=== PATIENT | male | born 1935 | race Caucasian/White ===

== ENCOUNTER 2016-05-04 12:25 | Observation (INO) | payer MEDICARE, OTHER ==
[2016-05-04] MEDS ORDERED: ASPIRIN 81 MG TAB.CHEW PO ONE (13:18)
[2016-05-04] MEDS ORDERED: NITROGLYCERIN 0.4 MG/TAB BTL SL PRN (13:18)
--- NOTE | 2016-05-04 13:20 | ERNOTE ---
Syncope ER HPI Date of Service: 05/04/16 Stated Complaint: SYNCOPE Time Seen by Provider: 05/04/16 13:10 Source: patient, family Exam Limitations: no limitations Immunizations: IMMUNIZATION HX Immunizations Up to Date Yes History of Influenza Vaccine Yes Hx Pneumococcal Vaccination Yes Allergies/Adverse Reactions: Allergies No Known Allergies Allergy (Verified 05/04/16 12:34) Home Medications: HOME MEDICATIONS Aspirin [Aspirin Chewable] 81 mg PO DAILY 01/27/14 [Last Taken 05/04/16] Benazepril HCl [Lotensin] 10 mg PO DAILY 01/27/14 [Last Taken 05/04/16] Clopidogrel Bisulfate [Plavix] 75 mg PO DAILY 01/27/14 [Last Taken 05/04/16] Gabapentin [Neurontin] 300 mg PO BID 01/27/14 [Last Taken 05/04/16] Multivitamin [Multi Vitamin Daily] 1 each PO DAILY 01/27/14 [Last Taken 05/04/16 ] Nitroglycerin 0.4 mg SL Q5M PRN 01/27/14 [Last Taken Unknown] Pantoprazole Sodium [Protonix] 40 mg PO DAILY 01/27/14 [Last Taken 05/04/16] Simvastatin [Zocor] 40 mg PO HS 01/27/14 [Last Taken 05/03/16] Baclofen 10 mg PO BID 11/07/14 [Last Taken 05/04/16] Finasteride [Proscar] 5 mg PO DAILY 05/04/16 [Last Taken 05/03/16] Tamsulosin HCl [Flomax] 0.4 mg PO HS 05/04/16 [Last Taken 05/03/16] - History of Present Illness Narrative: 80 y/o male brought to the ED from home by EMS for a near syncopal episode. He was outside raking leaves when he began to feel weak and lightheaded. He went inside and sat down. He then began feeling worse and reports being clammy and almost passing out. He denies any chest pain at that time, but reports midsternal chest pain when I walked in the room to see him. He denies any prior syncopal episodes or chest pain. He had 3 stents placed in 2008(?) at [facility] and has been without any cardiac symptoms since. Prior Episodes: Present: no prior history, single episode today Symptoms prior to episode: Present: none Activity at time of episode: Present: other - exertion Character of event: Present: no loss of consciousness, almost passed out Location of Injury: Present: none Current Symptoms: Present: chest pain Prior Treament: Denies: recently seen, similar symptoms before Review of Systems - Review of Systems Constitutional: Absent: recent illness, fever, chills, fatigue, malaise EYE: Present: no symptoms reported ENT: Absent: ear pain, nose congestion, sore throat Respiratory: Absent: shortness of breath, cough Cardiology: Absent: palpitations, edema Gastrointestinal/Abdominal: Absent: nausea, vomiting, diarrhea, abdominal pain, eating less, drinking less Genitourinary: Absent: dysuria, hematuria Musculoskeletal: Absent: muscle pain, joint pain Skin: Absent: rash, lesions Neurological: Absent: headache, numbness, tingling Endocrine: Present: no symptoms reported Hematologic/Lymphatic: Present: no symptoms reported Psych: Present: no symptoms reported - Patient's Past Medical History Patient History - Medical: Arthritis, GERD, Other - Back pain - scoliosis Patient History - Cardiac/Respiratory: Coronary Heart Disease, Hyperlipidemia Patient History - Cancer: No Hx of Cancer Patient History - Surgical Procedures: Cardiac stent, Hernia Repair, Orthopedic - Shoulder - Family History Brother Family History - Medical: Family History - Cardiac/Respiratory: Cardiac Arrest Father Family History - Medical: Family History - Cardiac/Respiratory: Cardiac Arrest Sister Family History - Medical: , Diabetes Type 2 Grandfather Family History - Medical: Family History - Cardiac/Respiratory: Cardiac Arrest - Social History Living Situations: spouse Abuse History: No History of abuse Psych History: No pertinent hx Smoking Status: Former smoker Have you smoked in the past 12 months: No Do you dip or chew tobacco: No Patient requests Smoking Cessation Consult: No Initiate information on Smoking Cessation: No Alcohol Use: none Drug Use: none - Immunizations Immunizations Up to Date: Yes Hx Pneumococcal Vaccination: Yes History of Influenza Vaccine: Yes Physical Exam - Physical Exam General Appearance: Present: wd/wn, alert, no apparent distress Eye Exam: Normal inspection: bilateral Ears, Nose, Throat: Present: normal ENT inspection Neck: Present: normal inspection, nontender, supple, full range of motion Respiratory: Present: no respiratory distress, normal breath sounds, no accessory muscle use, chest nontender, lungs clear Cardiovascular/Chest: Present: regular rate, rhythm, no murmur, normal peripheral pulses Gastrointestinal/Abdominal: Present: normal bowel sounds, nontender, distended Extremity Exam: Present: normal inspection, normal range of motion, no edema Neurological Exam: Present: alert, oriented, normal mood/affect, no motor/ sensory deficits Skin Exam: Present: normal color, warm/dry ED Progress - Results and Orders Patient's Lab Results:: I have reviewed the patient's lab results. - Vital Signs Patient's Vital Signs:: I have reviewed the patient's vital signs. Vital Signs: Vital Signs 05/04/16 12:37 Temperature 35.7 C L Pulse Rate 70 Respiratory 14 Rate Blood Pressure 107/57 O2 Sat by Pulse 97 Oximetry - X-Ray X-Ray #1 X-Ray: chest Interpretation: Reviewed by me X-ray Comments: Technique: Frontal and lateral views of the chest are evaluated. (2) views. Comparison: January 27, 2014. Findings: The patient is rotated. The lungs are symmetrically inflated. Eventration of the diaphragm noted. No focal consolidation. No pneumothorax or pleural effusion. The cardiac silhouette and mediastinal contours are unchanged. Atherosclerotic changes are present at the aortic arch. The pulmonary vascular markings are normal. The osseous structures are remarkable for degenerative changes. No acute osseous findings. IMPRESSION: No acute pulmonary findings. Electronically signed by Angelo Mitchell D.O.. - Progress/Reassessment Chief Complaint: Syncopal Episode Progress:: Unchanged Plan - Plan Plan: Chest pain relieved with one nitro. No further episodes of weakness or near syncope. Negative troponin and EKG's were unremarkable. Dr. Thompson contacted regarding patient. Given his prior cardiac history, will admit to observation for chest pain, R/O MS. Departure Clinical Impression: Near syncope Chest pain Qualifiers: Chest pain type: unspecified Qualified Code(s): R07.9 - Chest pain, unspecified - Departure Disposition: [facility] Condition: Stable Referrals: Kevin Vasquez MD [Primary Care Provider] -
[2016-05-04 13:34] LABS: Hematocrit 39.8 % (42.0-52.0); Mean Cell Volume 89.8 fl (78-100); Mean Corpuscular Hemoglobin 29.3 pg (27-31); Mean Corpuscular Hgb Conc 32.7 g/dl (32-36); Mean Platelet Volume 10.5 fl (6.0-9.5); Neutrophil # 9.9 K/mm3 (1.3-6.0); Neutrophil % 85.3 % (42-75.0); Platelet Count 236 K/mm3 (150-450); Red Blood Count 4.43 M/mm3 (4.7-6.0); Red Cell Distribution Width 14.5 % (11.5-14.0); White Blood Count 11.6 K/mm3 (4.0-10.5)
[2016-05-04 13:43] LABS: Prothrombin Time (Patient) 10.9 Seconds (9.4-11.4)
[2016-05-04 13:45] LABS: INR 1.05 INR (0.90-1.10); Partial Thrombolplastin Time 22.1 Seconds (24-32)
[2016-05-04 13:52] LABS: ALT 27 U/L (19-67); AST 22 U/L (0-48); Albumin * 3.5 gm/dl (3.4-5.0); Alkaline Phosphatase * 50 U/L (50-170); Anion Gap 12.9 mmol/L (6.8-13.8); BUN/Creatinine Ratio 18.7 (9.0-21.6); Bilirubin, Total 0.6 mg/dL (0.0-1.1); Blood Urea Nitrogen 23 mg/dL (6-23); Calcium * 8.9 mg/dL (7.9-10.9); Carbon Dioxide 27.5 mmol/L (24-32.6); Chloride 104 mmol/L (97-106); Glucose * 139 mg/dL (70-110); Potassium 4.4 mmol/L (3.4-4.6); Sodium 140 mmol/L (132-142); Troponin I Less than 0.017 ng/ml (0.00-0.10)
--- OUTSIDE RECORDS SUMMARY | 2016-05-04 13:55 | XMS REPORT | Continuity of Care Document ---
:1935 Author Organization [facility] ([facility]) Address [address] [place] [address] Phone [phone] Care Team Providers Name Role Phone Kevin Vasquez Primary Care Provider [phone] Source Comments This disclosure is being made pursuant to the Care Everywhere program, applicable federal and state laws, and may not contain all informaitonavailable regarding this patient.[facility] ([facility]) Active Allergies and Adverse Reactions No Known Allergies Current Medications Prescription Sig. Disp. Refills Start Date End Date Status baclofen 10 mg tablet Take 1 tablet by 11/20/2014 Active mouth 2 times daily benazepril 10 mg tablet Take 1 tablet by 12/11/2014 Active mouth daily clopidogrel 75 mg tablet Take 1 tablet by 12/11/2014 Active mouth daily ciprofloxacin HCl 500 mg Take 1 tablet by 10/25/2014 Active tablet mouth every 12 hours pantoprazole 40 mg EC Take 1 tablet by 10/21/2014 Active tablet mouth daily tamsulosin 0.4 mg capsule Take 1 capsule by 11/30/2014 Active mouth at bedtime aspirin 81 mg EC tablet Take 81 mg by mouth Active daily gabapentin 300 mg capsule Take 300 mg by Active mouth 2 times daily NITROGLYCERIN PO Take 1 tablet by Active mouth as needed simvastatin 20 mg tablet Take 20 mg by mouth Active every evening multivitamin tablet Take 1 tablet by Active mouth daily FERROUS FUMARATE (IRON Take 1 tablet by Active PO) mouth daily Active Problems Problem Noted Date PARISA (iron deficiency anemia) 03/04/2015 Pharyngeal dysphagia 03/04/2015 Social History Tobacco Use Types Packs/Day Years Used Date Former Smoker Cigarettes Smokeless Tobacco: Never Used Tobacco Cessation:Counseling Given: Yes Comments:50 yrs ago quit Last Filed Vital Signs Vital Sign Reading Time Taken Blood Pressure 131/60 01/09/2015 1:07 PM [employer] Pulse 74 01/09/2015 1:07 PM [employer] Temperature 35.7 C (96.3 F) 01/09/2015 1:07 PM [employer] Respiratory Rate - - Height 1.626 m (5' 4") 01/09/2015 1:07 PM [employer] Weight 65.65 kg (144 lb 11.7 oz) 01/09/2015 1:07 PM [employer] Body Mass Index 24.83 01/09/2015 1:07 PM [employer] Oxygen Saturation - - Plan of Care Health Maintenance Due Date Last Done Comments Hepatitis B Vaccine (1 of 3 - Primary Series) 1935 Tdap Vaccine 1948 Lipid Disorder Screening 06/30/1955 Td Vaccine 06/30/1955 Zoster Vaccine 1997 Pneumococcal Vaccine (1 of 2 - PCV13) 2002 Influenza Vaccine: Seasonal (#1) 09/16/2015 Colonoscopy 01/14/2025 01/14/2015 Results from Last 3 Months Not on file
--- OUTSIDE RECORDS SUMMARY | 2016-05-04 14:36 | XMS REPORT | Continuity of Care Document ---
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
[2016-05-04] MEDS ORDERED: traMADol HCL 50 MG TABLET PO SCH (16:15)
[2016-05-04] MEDS ORDERED: traMADol HCL 50 MG TABLET PO PRN (16:18)
--- NOTE | 2016-05-04 19:23 | HP ---
Chief Complaint - Chief Complaint Date of Service: 05/04/16 Time of Service: 16:40 Chief Complaint: Lightheadedness, Chest pain, weakness History of Present Illness: Jovanny is a 80 yo male that presented to the [facility] ER today after waking up feeling lightheaded and weak. He did not feel himself. He reports yesterday and before he has felt fine. He has not recently changed medication, diet, or activity. He does report that he did not sleep well last night and he attributed his feelings this morning to that. However after working outside in the yard he felt as though he were about to pass out, although he did not lose consciousness. He did not have any chest pain at this time. He presented to the [facility] ER to be evaluated. While there he had chest pain, anterior chest wall pain that did not radiate. He was given nitro and it soon passed. At the time of my interview he is asymptomatic. He has a history of stents and follows with Dr. Ashley. - Patient's Past Medical History Patient History - Medical: Arthritis, GERD Patient History - Cardiac/Respiratory: Coronary Heart Disease, Hyperlipidemia Patient History - Cancer: No Hx of Cancer Patient History - Surgical Procedures: Cardiac stent, Hernia Repair, Orthopedic Patient History - Other: None - Family History Brother Family History - Medical: Family History - Cardiac/Respiratory: Cardiac Arrest Family History - Cancer: No pertinent family hx Father Family History - Medical: Family History - Cardiac/Respiratory: Cardiac Arrest Family History - Cancer: No pertinent family hx Sister Family History - Medical: , Diabetes Type 2 Family History - Cardiac/Respiratory: No pertinent hx Family History - Cancer: No pertinent family hx Grandfather Family History - Medical: Family History - Cardiac/Respiratory: Cardiac Arrest Family History - Cancer: No pertinent family hx - Social History Living Situations: spouse Abuse History: No History of abuse Psych History: No pertinent hx Smoking Status: Never smoker Have you smoked in the past 12 months: No Do you dip or chew tobacco: No Patient requests Smoking Cessation Consult: No Initiate information on Smoking Cessation: No Alcohol Use: none Drug Use: none - Immunizations Immunizations Up to Date: Yes Hx Pneumococcal Vaccination: Yes History of Influenza Vaccine: Yes Review Of Systems (GEN) - Review of Systems Generalized/Overall Review: Present: Weakness, Malaise. Absent: Chills, Fever EENTM: Present: No Symptoms Reported Respiratory: Present: No Symptoms Reported Cardiac: Present: Chest Pain. Absent: Edema, Palpitations, Syncope Abdominal: Present: No Symptoms Reported Genitourinary: Present: No Symptoms Reported Musculoskeletal: Present: Back Pain Neurological: Present: No Symptoms Reported Skin: Present: No Symptoms Reported Allergies/Adverse Reactions: Allergies Allergy/AdvReac Type Severity Reaction Status Date / Time No Known Allergies Allergy Verified 05/04/16 15:34 Home Medications: HOME MEDICATIONS Aspirin [Aspirin Chewable] 81 mg PO DAILY 01/27/14 [Last Taken 05/04/16] Benazepril HCl [Lotensin] 10 mg PO DAILY 01/27/14 [Last Taken 05/04/16] Clopidogrel Bisulfate [Plavix] 75 mg PO DAILY 01/27/14 [Last Taken 05/04/16] Gabapentin [Neurontin] 300 mg PO BID 01/27/14 [Last Taken 05/04/16] Multivitamin [Multi Vitamin Daily] 1 each PO DAILY 01/27/14 [Last Taken 05/04/16 ] Nitroglycerin 0.4 mg SL Q5M PRN 01/27/14 [Last Taken Unknown] Pantoprazole Sodium [Protonix] 40 mg PO DAILY 01/27/14 [Last Taken 05/04/16] Simvastatin [Zocor] 40 mg PO HS 01/27/14 [Last Taken 05/03/16] Baclofen 10 mg PO BID 11/07/14 [Last Taken 05/04/16] Finasteride [Proscar] 5 mg PO DAILY 05/04/16 [Last Taken 05/03/16] Tamsulosin HCl [Flomax] 0.4 mg PO HS 05/04/16 [Last Taken 05/03/16] Exam - Exam Vital Signs: Vital Signs - Last Taken Temp 37.0 C 05/04/16 15:12 Pulse 65 05/04/16 15:43 Resp 18 05/04/16 15:12 BP 142/63 05/04/16 15:12 Pulse Ox 99 05/04/16 15:12 Constitutional: Present: Alert, Oriented x3, Cooperative ENT Exam: Present: hearing grossly normal Eye Exam: bilateral eye: normal inspection Respiratory: Present: lungs clear, normal breath sounds Cardiovascular/Chest: Present: regular rate, rhythm, no murmur Abdomen: Present: Normal bowel sounds, soft, nontender, nondistended Extremity: Present: non-tender, normal inspection, no pedal edema Skin Exam: Present: normal color, warm/dry, no cyanosis Lymphatic: Present: no adenopathy Neurologic: Present: alert, normal mood/affect, oriented x 3 Appearance: Present: appropriate appearance, appropriate insight Eye contact: Present: cooperative, good eye contact, normal speech Diagnostic Studies: Laboratory Results WBC 11.6 K/mm3 (4.0-10.5) H 05/04/16 13:30 RBC 4.43 M/mm3 (4.7-6.0) L 05/04/16 13:30 Hgb 13.0 gm/dL (13.5-18.0) L 05/04/16 13:30 Hct 39.8 % (42.0-52.0) L 05/04/16 13:30 MCV 89.8 fl (78-100) 05/04/16 13:30 MCH 29.3 pg (27-31) 05/04/16 13:30 MCHC 32.7 g/dl (32-36) 05/04/16 13:30 RDW 14.5 % (11.5-14.0) H 05/04/16 13:30 Plt Count 236 K/mm3 (150-450) 05/04/16 13:30 MPV 10.5 fl (6.0-9.5) H 05/04/16 13:30 Immature Gran % (Auto) 0.30 % (0.001-0.429) 05/04/16 13:30 Immature Gran # (Auto) 0.04 K/mm3 (0.000-0.0310) H 05/04/16 13:30 Neutrophils % 85.3 % (42-75.0) H 05/04/16 13:30 Lymphocytes % 7.3 % (20-51) L 05/04/16 13:30 Monocytes % 4.6 % (0.0-9) 05/04/16 13:30 Eosinophils % 2.1 % (0.0-3.0) 05/04/16 13:30 Basophils % 0.4 % (0.0-1.0) 05/04/16 13:30 Nucleated RBC % 0.0 k/mm3 (0-1) 05/04/16 13:30 Neutrophils # 9.9 K/mm3 (1.3-6.0) H 05/04/16 13:30 Lymphocytes # 0.9 k/mm3 (1.5-3.5) L 05/04/16 13:30 Monocytes # 0.5 k/mm3 (0.0-1.0) 05/04/16 13:30 Eosinophils # 0.2 k/mm3 (0.0-0.7) 05/04/16 13:30 Absolute Basophils 0.1 k/mm3 (0.0-0.1) 05/04/16 13:30 PT 10.9 Seconds (9.4-11.4) 05/04/16 13:30 INR (Anticoag Therapy) 1.05 INR (0.90-1.10) 05/04/16 13:30 PTT (Blanco) 22.1 Seconds (24-32) L 05/04/16 13:30 Sodium 140 mmol/L (132-142) 05/04/16 13:30 Plasma Sodium 141 mmol/L (130-142) 05/04/16 13:30 Potassium 4.4 mmol/L (3.4-4.6) 05/04/16 13:30 Chloride 104 mmol/L (97-106) 05/04/16 13:30 Carbon Dioxide 27.5 mmol/L (24-32.6) 05/04/16 13:30 Anion Gap 12.9 mmol/L (6.8-13.8) 05/04/16 13:30 BUN 23 mg/dL (6-23) 05/04/16 13:30 Creatinine 1.23 mg/dL (0.4-1.4) 05/04/16 13:30 Est GFR (Non-Af Amer) 60 mL/min (60-130) 05/04/16 13:30 BUN/Creatinine Ratio 18.7 (9.0-21.6) 05/04/16 13:30 Random Glucose 139 mg/dL (70-110) H 05/04/16 13:30 Calcium 8.9 mg/dL (7.9-10.9) 05/04/16 13:30 Calcium Adj for Albumin 9.0 mg/dL (8.4-10.2) 05/04/16 13:30 Total Bilirubin 0.6 mg/dL (0.0-1.1) 05/04/16 13:30 AST 22 U/L (0-48) 05/04/16 13:30 ALT 27 U/L (19-67) 05/04/16 13:30 Alkaline Phosphatase 50 U/L (50-170) 05/04/16 13:30 Troponin I Less than 0.017 ng/ml (0.00-0.10) 05/04/16 13:30 Total Protein 7.0 gm/dL (6.2-8.2) 05/04/16 13:30 Albumin 3.5 gm/dl (3.4-5.0) 05/04/16 13:30 Assessment/Plan - Assessment/Plan (1) Chest pain Assessment: Jovanny is a 80 yo male with PMH of CAD with stenting. He had an episode of near syncope today and later developed chest pain in the ER. Initial evaluation was negative for acute OH. He will be admitted to observation with serial troponins and monitoring on telemetry. If negative work up for acute OH will plan to discharge to home tomorrow. Problem: Acute Qualifiers: Chest pain type: unspecified Qualified Code(s): R07.9 - Chest pain, unspecified (2) Near syncope Assessment: Reported hypotension at home at times and blood pressure in the ER was on the low side of normal. He is on benazipril for CAD, he reports no actual history of HTN. Will monitor blood pressure. May consider decreasing dose to 5mg daily to prevent further hypotensive episodes again. He was also encouraged to stay hydrated to prevent lightheadedness and hypotension. Problem: Acute
[2016-05-04] MEDS: GABAPENTIN 300 MG CAPSULE PO SCH (20:12)
[2016-05-04] MEDS: FINASTERIDE 5 MG TABLET PO SCH (20:13)
[2016-05-04] MEDS ORDERED: TAMSULOSIN HCL 0.4 MG CAP.SR.24H PO SCH (21:00)
[2016-05-04] MEDS ORDERED: SIMVASTATIN 20 MG TABLET PO SCH (21:00)
[2016-05-05 06:30] LABS: Mean Cell Volume 89.3 fl (78-100); Mean Corpuscular Hemoglobin 29.8 pg (27-31); Mean Corpuscular Hgb Conc 33.3 g/dl (32-36); Mean Platelet Volume 10.5 fl (6.0-9.5); Neutrophil # 4.5 K/mm3 (1.3-6.0); Neutrophil % 73.9 % (42-75.0); Platelet Count 208 K/mm3 (150-450); Red Blood Count 4.03 M/mm3 (4.7-6.0); Red Cell Distribution Width 14.6 % (11.5-14.0); White Blood Count 6.1 K/mm3 (4.0-10.5)
[2016-05-05 06:31] VITALS: BP 126/54
[2016-05-05] MEDS ORDERED: NITROGLYCERIN 0.4 MG/TAB BTL SL PRN (06:46)
[2016-05-05 06:52] LABS: ALT 24 U/L (19-67); AST 18 U/L (0-48); Albumin * 3.1 gm/dl (3.4-5.0); Alkaline Phosphatase * 45 U/L (50-170); Anion Gap 13.8 mmol/L (6.8-13.8); BUN/Creatinine Ratio 21.2 (9.0-21.6); Bilirubin, Total 0.6 mg/dL (0.0-1.1); Blood Urea Nitrogen 22 mg/dL (6-23); Ca. Corrected For Albumin 8.8 mg/dL (8.4-10.2); Calcium * 8.4 mg/dL (7.9-10.9); Carbon Dioxide 24.1 mmol/L (24-32.6); Chloride 103 mmol/L (97-106); Glucose * 112 mg/dL (70-110); Potassium 3.9 mmol/L (3.4-4.6); Sodium 137 mmol/L (132-142); Total Protein 6.4 gm/dL (6.2-8.2); Troponin I Less than 0.017 ng/ml (0.00-0.10)
[2016-05-05] MEDS ORDERED: PANTOPRAZOLE SODIUM 40 MG TABLET.EC PO SCH (07:00)
[2016-05-05] MEDS: FINASTERIDE 5 MG TABLET PO SCH (08:41)
[2016-05-05] MEDS: GABAPENTIN 300 MG CAPSULE PO SCH (08:41)
--- NOTE | 2016-05-05 08:44 | DS ---
(1) Chest pain Problem: Resolved Qualifiers: Chest pain type: unspecified Qualified Code(s): R07.9 - Chest pain, unspecified (2) Near syncope Problem: Resolved Description of Stay: Jovanny is a 80 yo male that presented to the [facility] ER today after waking up feeling lightheaded and weak. He did not feel himself. He reports yesterday and before he has felt fine. He has not recently changed medication, diet, or activity. He does report that he did not sleep well last night and he attributed his feelings this morning to that. However after working outside in the yard he felt as though he were about to pass out, although he did not lose consciousness. He did not have any chest pain at this time. He presented to the [facility] ER to be evaluated. While there he had chest pain, anterior chest wall pain that did not radiate. He was given nitro and it soon passed. At the time of my interview he is asymptomatic. He has a history of stents and follows with Dr. Ashley. over the course of his stay, troponin were negative. pt did not have any further cp or near syncope episodes. at discharge, pt was encourage to push fluids. blood pressure medication, benazepril, was decreased from 10 mg to 5 mg. pt was discharged in stable condition. Procedures Performed: none Discharge Disposition: Home self care Disposition: Home self-care Condition: Stable Discharge Activity: Activity as tolerated Discharge Diet: General/regular food, Low salt Referrals: Kevin Vasquez MD [Primary Care Provider] - Problem Oriented Discharge Instructions to Patient/Family: Near-Syncope, Nonspecific Chest Pain, [id number] Additional Patient Instructions (free text): Increase oral fluid intake Decrease Benzapril dose to 5 mg daily -This was called to [facility] We will call you with a follow up date and time with Dr. Vasquez. Prescriptions (Any new or edited meds): Benazepril HCl 5 mg PO DAILY #30 tablet Complete Home Medications List: Complete Home Medication List: Aspirin [Aspirin Chewable] 81 mg PO DAILY 01/27/14 Clopidogrel Bisulfate [Plavix] 75 mg PO DAILY 01/27/14 Gabapentin [Neurontin] 300 mg PO BID 01/27/14 Multivitamin [Multi-Vitamin Daily] 1 each PO DAILY 01/27/14 Pantoprazole Sodium [Protonix] 40 mg PO DAILY 01/27/14 Simvastatin [Zocor] 40 mg PO HS 01/27/14 Finasteride [Proscar] 5 mg PO DAILY 05/04/16 Tamsulosin HCl [Flomax] 0.4 mg PO HS 05/04/16 Benazepril HCl 5 mg PO DAILY #30 tablet 05/05/16
[2016-05-05] MEDS ORDERED: ASPIRIN 81 MG TAB.CHEW PO SCH (09:00)
[2016-05-05] MEDS ORDERED: MULTIVITAMINS 1 TAB TAB.CHEW PO SCH (09:00)
[2016-05-05] MEDS ORDERED: BENAZEPRIL HCL 10 MG TABLET PO SCH (09:00)
[2016-05-05] MEDS ORDERED: CLOPIDOGREL BISULFATE 75 MG TABLET PO SCH (09:00)
[2016-05-05] MEDS ORDERED: SIMVASTATIN 40 MG TABLET PO SCH (21:00)
== END 2016-05-05 10:29 | disposition home or self-care (01) ==
LOC: ER 12:25 → MS 14:33
PROVIDERS: ADMIT Family Medicine; ATTEND Family Medicine
DX: R07.89 Other chest pain (principal); R55 Syncope and collapse; M19.90 Unspecified osteoarthritis, unspecified site; K21.9 Gastro-esophageal reflux disease without esophagitis; I25.10 Atherosclerotic heart disease of native coronary artery without angina pectoris; E78.5 Hyperlipidemia, unspecified
CPT/HCPCS: 36415; 71020; 80053; 84484; 85025; 85610; 85730; 93005; 99284; G0378

== ENCOUNTER 2016-08-03 10:32 | Day surgery (SDC) | payer MEDICARE, OTHER ==
[~2016-08-03 10:32] MED LIST: RINGERS SOLUTION,LACTATED 1,000 ML IV PRN; ceFAZolin SODIUM 1 GM VIAL IV PRN
--- OUTSIDE RECORDS SUMMARY | 2016-08-03 10:37 | XMS REPORT | Continuity of Care Document ---
:1935 Author Organization [facility] ([facility]) Address [address] [place] [address] Phone [phone] Care Team Providers Name Role Phone Kevin Vasquez Primary Care Provider [phone] Source Comments This disclosure is being made pursuant to the Care Everywhere program, applicable federal and state laws, and may not contain all informaitonavailable regarding this patient.[facility] ([facility]) Active Allergies and Adverse Reactions No Known [...] Taken Blood Pressure 131/60 01/09/2015 1:07 PM [employer] Pulse 74 01/09/2015 1:07 PM [employer] DIRECT[employer] Temperature 35.7 C (96.3 F) 01/09/2015 1:07 PM [employer] DIRECTOR Respiratory Rate - - Height 1.626 m (5' 4") 01/09/2015 1:07 PM [employer] DIRECT[employer] Weight 65.65 kg (144 lb 11.7 oz) 01/09/2015 1:07 PM [employer] DIRECT[employer] Body Mass Index 24.83 01/09/2015 1:07 PM BU[employer] DIRECTOR Oxygen Saturation - - Plan of Care [...]
[2016-08-03] MEDS ORDERED: RINGERS SOLUTION,LACTATED 1,000 ML IV ONE ×2 (11:04→13:00)
[2016-08-03] MEDS ORDERED: BUPIVACAINE HCL/EPINEPHRINE/PF 30 ML VIAL IJ ONE ×2 (12:00)
[2016-08-03] MEDS ORDERED: RINGERS SOLUTION,LACTATED 1,000 ML IV PRN (13:11)
[2016-08-03] MEDS ORDERED: oxyCODONE HCL/ACETAMINOPHEN 1 TAB TABLET PO ONE (13:30)
[2016-08-03] MEDS ORDERED: oxyCODONE HCL/ACETAMINOPHEN 1 TAB TABLET PO PRN (14:34)
--- NOTE | 2016-08-03 14:47 | OR ---
Operative Report - Dictated Report Narrative: Date of operation: 08/03/2016 Preoperative diagnosis: Left inguinal hernia Postoperative diagnosis: Direct left inguinal hernia Operation: Repair of left inguinal hernia using Bard mesh plug and patch Surgeon: ROB Kamara MD Anesthesia: Gen. endotracheal Geoffrey Myers CRNA Indications for procedure: The patient is a 81-year-old male with an enlarging and increasingly symptomatic left inguinal hernia. He has been off aspirin and Plavix and is brought for repair Findings: Direct left inguinal hernia Narrative of procedure: The patient was identified preoperatively, the surgical site was marked, and prior to the administration of anesthetic a multidisciplinary timeout was observed. The patient was placed supine, SCDs were applied, and 2 g of intravenous Ancef administered. Gen. endotracheal Anesthetic was administered. The patient's abdomen and genitalia were prepped with Betadine solution and the left groin isolated with 4 sterile towels. The remainder the patient was covered with a sterile disposable drape. A transverse skin incision was made over the midportion of the left inguinal canal. Dissection was carried through subcutaneous tissue with electrocautery until the fascia of the external oblique aponeurosis was encountered. This was incised in the direction of its fibers down to and including the external inguinal ring. The ilioinguinal nerve was identified and protected throughout the procedure. Cord structures were encircled at the pubic tubercle, and a Madeline drain placed for traction. Inspection of the inguinal floor revealed a direct hernia sac. Inspection of the cord revealed no evidence of indirect hernia. A Bard mesh plug was placed in the inguinal floor and secured circumferentially to the pubic tubercle, conjoined tendon, and along the shelving border of the inguinal ligament with interrupted sutures of 0 Ethibond. A mesh patch was placed and secured circumferentially to the pubic tubercle, along the conjoined tendon, and along the shelving border of the inguinal ligament with interrupted sutures of 0 Ethibond. The wings of the patch were wrapped around the cord structures and secured laterally with additional interrupted sutures of 0 Ethibond. The new internal inguinal ring was found to be of sufficient caliber to admit cord structures without undue constriction. Wound was inspected for hemostasis which appeared complete. The cord structures and ilioinguinal nerve were returned to an anatomic position. After receiving a correct sponge needle and instrument count attention was turned to closing the wound. The external oblique aponeurosis was approximated with a running suture of 2-0 Vicryl. Subcutaneous tissues were approximated with interrupted sutures of 2-0 chromic. The skin was secured with a running subcuticular suture of 4-0 Vicryl. The operative site was washed and dried. A dressing of Dermabond, folded 4 x 4, and Medipore tape was applied. The scrotum was checked to ensure that the testicles were in an anatomic position. The operative procedure was terminated at this point. The patient tolerated the anesthetic and procedure well without complication. There was no measurable blood loss. No specimen was submitted. 0.5% Marcaine with epinephrine was used for local anesthetic infiltration. The patient was transferred to the recovery room awake, extubated, and in stable condition. The patient remained stable throughout a period of postoperative observation. He was able to tolerate PO intake. His pain was controlled with po Percocet. He was able to ambulate without assistance. The dressings remained dry. He was discharged home with instructions not to lift and not to drive. He is to keep the current dressing dry and intact for 48 hours, but then may shower and change the dressing daily or as needed. The patient was given a prescription for Percocet 5/325 mg #30 1-2 po Q4-6hrs prn pain. The patient has phone numbers to call prn signs of wound infection or hematoma, and an office appointment was made for 1 week. Reviewed and electronically signed
[2016-08-03 15:29] VITALS: BP 136/78
== END 2016-08-03 10:33 | disposition home or self-care (01) ==
LOC: AMB 10:32
PROVIDERS: ATTEND Surgery
PROC: 0YU60JZ Supplement Left Inguinal Region with Synthetic Substitute, Open Approach (ICD-10-PCS; principal; 2016-08-03 12:15)
DX: K40.90 Unilateral inguinal hernia, without obstruction or gangrene, not specified as recurrent (principal); I25.10 Atherosclerotic heart disease of native coronary artery without angina pectoris; K21.9 Gastro-esophageal reflux disease without esophagitis; E78.5 Hyperlipidemia, unspecified; D64.9 Anemia, unspecified; M19.90 Unspecified osteoarthritis, unspecified site; Z68.27 Body mass index [BMI] 27.0-27.9, adult

== ENCOUNTER 2018-01-19 10:00 | Observation (INO) | payer MEDICARE, OTHER ==
[2018-01-19] MEDS ORDERED: ASPIRIN 81 MG TAB.CHEW PO ONE (10:21)
--- NOTE | 2018-01-19 10:27 | ERNOTE ---
Chest Pain/Cardiac HPI Date of Service: 01/19/18 Chief Complaint: Chest Pain Time Seen by Provider: 01/19/18 10:25 Source: patient Exam Limitations: no limitations Immunizations: IMMUNIZATION HX Immunizations Up to Date Yes History of Influenza Vaccine Yes Hx Pneumococcal Vaccination Yes Allergies/Adverse Reactions: Allergies No Known Allergies Allergy (Verified 08/03/16 10:50) Home Medications: HOME MEDICATIONS Aspirin [Aspirin Chewable] 81 mg PO DAILY 01/27/14 [Last Taken 01/18/18] Clopidogrel Bisulfate [Plavix] 75 mg PO DAILY 01/27/14 [Last Taken 07/26/16] Gabapentin [Neurontin] 300 mg PO BID 01/27/14 [Last Taken 05/04/16] Pantoprazole Sodium [Protonix] 40 mg PO DAILY 01/27/14 [Last Taken 05/04/16] Simvastatin [Zocor] 20 mg PO HS 01/27/14 [Last Taken 05/03/16] Tamsulosin HCl [Flomax] 0.4 mg PO HS 05/04/16 [Last Taken 05/03/16] Baclofen 10 mg PO BID 07/27/16 [Last Taken 08/03/16 07:00] Benazepril HCl 5 mg PO DAILY 07/27/16 [Last Taken 08/03/16 07:00] Multivitamins [Multivitamin Prudence] 1 cap PO DAILY 07/27/16 [Last Taken Unknown] Nitroglycerin [Nitrostat] 0.4 mg SL [id number] PRN 07/27/16 [Last Taken 01/19/18] Pain Score #1 Pain Score: 0 Narrative: The patient is a 82 year old male who presents for chest pain which began at 0600. There are no associated symptoms. The patient denies pain upon exam. There are alleviating factors of Nitro. There are no aggravating factors. Previous treatments have included: Nitro with resolution of chest pain. The past medical history includes: CAD, HTN, GERD, TIA and arthritis. The social history is positive for past smoker. The patient has had no ill contacts. Patient states he was watching television when the pain began to left anterior chest. Patient denies radiation of pain, diaphoresis or nausea with episode of pain. Timing: gone now Severity/Quality: aching Location: left chest Chest Pain Radiation: no radiation Modifying Factors - Improves: Present: nitroglycerin Modifying Factors - Worsens: Present: nothing Nitro Today/Relief: 0.4 mg x 1 Aspirin Treatment Today: no aspirin today Associated Symptoms: Absent: cough, shortness of breath, diaphoresis, heartburn, nausea, vomiting, abdominal pain Prior Chest Pain/Cardiac Workup: Reports: heart attack, cardiac cath Review of Systems - Review of Systems Constitutional: Present: no symptoms reported. Absent: recent illness, fever, fatigue EYE: Present: no symptoms reported ENT: Present: no symptoms reported. Absent: ear pain, nasal drainage, sore throat Respiratory: Present: no symptoms reported. Absent: shortness of breath, cough Cardiology: Present: chest pain Gastrointestinal/Abdominal: Present: no symptoms reported. Absent: nausea, vomiting, diarrhea Genitourinary: Present: no symptoms reported. Absent: dysuria Musculoskeletal: Present: no symptoms reported. Absent: back pain Skin: Present: no symptoms reported. Absent: rash Neurological: Present: headache - post nitro, resolved now Endocrine: Present: no symptoms reported Hematologic/Lymphatic: Present: no symptoms reported Psych: Present: no symptoms reported All Other Systems: All systems neg except as marked Medical History (Last Reviewed 01/19/18 @ 10:44 by WILMAN Benson) Arthritis CAD (coronary artery disease) GERD (gastroesophageal reflux disease) Hypertension TIA (transient ischemic attack) Trigger finger Surgical History: Surgical History (Last Reviewed 01/19/18 @ 10:44 by WILMAN Benson) H/O carpal tunnel repair bilateral H/O heart artery stent H/O left inguinal hernia repair H/O right inguinal hernia repair Family History: Family History (Last Reviewed 01/19/18 @ 10:44 by WILMAN Benson) Father Mother Social History: Preferred Language Mozambican Do you have any orthodox or Yes: Episcopal cultural preference? Smoking Status Former smoker Have you smoked in the past 12 No months Do you dip or chew tobacco No Abuse History No History of abuse Psych History No pertinent hx Alcohol Use none Drug Use none No Social History Section defined Physical Exam - Physical Exam General Appearance: Present: wd/wn, alert, no apparent distress Head Exam: Present: normal inspection Respiratory: Present: no respiratory distress, normal breath sounds, no accessory muscle use, chest nontender, lungs clear Cardiovascular/Chest: Present: regular rate, rhythm, no murmur, normal peripheral pulses Peripheral Pulses: N=norm/S=strong/W=weak/B=bound/A=absent: Radial (L): Normal Gastrointestinal/Abdominal: Present: normal bowel sounds, nontender, nondistended, soft, no organomegaly Neurological Exam: Present: alert, oriented, normal mood/affect Skin Exam: Present: normal color, warm/dry Progress - Date and Time Seen: Date and Time: 01/19/18 12:04 Discussed case with . Feels that patient needs scheduled for stress testing. Discussed with . Patient will be admitted for chest pain rule out with follow up stress testing tomorrow. - Results and Orders Patient's Lab Results:: I have reviewed the patient's lab results. - Vital Signs Patient's Vital Signs:: I have reviewed the patient's vital signs. Vital Signs: Vital Signs 01/19/18 10:02 Temperature 36.4 C Pulse Rate 84 Respiratory Rate 18 Blood Pressure 120/60 O2 Sat by Pulse Oximetry 97 - EKG EKG: NSR EKG read: Reviewed by me - X-Ray X-Ray #1 X-Ray: chest Interpretation: Reviewed by me X-ray Comments: X-RAY REPORT ~[id number] RAD/Chest PA & Lateral *~ Exam Date: 01/19/2018 10:21 Ordering Physician: Montez Rogers HISTORY: Chest Pain. Additional history from technologist: CHEST PAIN PRIOR TO ARRIVAL, NO CHEST PAIN NOW TECHNIQUE: PA and lateral views of the chest were obtained. 2 images. COMPARISONS: 05/04/2016 FINDINGS: Chest PA Lateral * Normal lung volumes. No consolidation or mass. No significant vascular congestion suggested. No pneumothorax or pleural fluid collections. Cardiac silhouette within normal limits. Mild tortuosity of the thoracic aorta noted, with overlying atherosclerotic vascular calcifications. Trachea is in normal position. Bones show degenerative changes of the spine. Decreased mineralization of bone suggestive of underlying osteopenia or osteoporosis. IMPRESSION: No focal acute cardiopulmonary finding. Electronically signed by Omar Joshi M.D.. - Progress/Reassessment Chief Complaint: Chest Pain Departure Clinical Impression: Chest pain Qualifiers: Chest pain type: unspecified Qualified Code(s): R07.9 - Chest pain, unspecified - Departure Disposition: Still a patient Condition: Good
[2018-01-19 10:38] LABS: Hematocrit 39.8 % (42.0-52.0); Hemoglobin 13.3 gm/dL (13.5-18.0); Mean Cell Volume 96.1 fl (78-100); Mean Corpuscular Hemoglobin 32.1 pg (27-31); Mean Corpuscular Hgb Conc 33.4 g/dl (32-36); Mean Platelet Volume 10.3 fl (8-11.3); Neutrophil # 2.6 K/mm3 (1.3-6.0); Neutrophil % 47.6 % (42-75.0); Platelet Count 219 K/mm3 (150-450); Red Blood Count 4.14 M/mm3 (4.7-6.0); Red Cell Distribution Width 13.3 % (11.5-14.0); White Blood Count 5.4 K/mm3 (4.0-10.5)
[2018-01-19 10:46] LABS: Prothrombin Time (Patient) 10.3 Seconds (9.0-11.0)
[2018-01-19 10:49] LABS: INR 1.03 INR (0.90-1.10); Partial Thrombolplastin Time 23.8 Seconds (24-32)
[2018-01-19 10:54] LABS: Troponin I Less than 0.017 ng/mL (0.00-0.10)
[2018-01-19 10:56] LABS: BUN/Creatinine Ratio 14.2 (9.0-21.6); Blood Urea Nitrogen 16 mg/dL (6-23); Carbon Dioxide 25.2 mmol/L (24-32.6); Chloride 104 mmol/L (97-106); Glucose * 138 mg/dL (70-110); Potassium 4.1 mmol/L (3.4-4.6); Sodium 136 mmol/L (132-142)
[2018-01-19 10:57] LABS: ALT 25 U/L (19-67); AST 22 U/L (0-48); Albumin * 3.3 gm/dl (3.4-5.0); Alkaline Phosphatase * 60 U/L (50-170); Anion Gap 10.9 mmol/L (6.8-13.8); Bilirubin, Total 0.4 mg/dL (0.0-1.1); Ca. Corrected For Albumin 8.8 mg/dL (8.4-10.2); Calcium * 8.6 mg/dL (7.9-10.9); Total Protein 6.5 gm/dL (6.2-8.2)
--- NOTE | 2018-01-19 15:37 | HP ---
Chief Complaint - Chief Complaint Date of Service: 01/19/18 Time of Service: 15:36 Chief Complaint: chest pain History of Present Illness: Jovanny Bradshaw, is an 82-year-old white male, patient of Dr. Vasquez, with past medical history of coronary artery disease, status post stenting, hypertension, GERD, osteoarthritis, who was admitted on 01/19/2018 because of chest pain. Early on the morning admission while the patient was sitting down she experienced sharp chest pain 4-5/10, left parasternal, nonradiating, not associated with nausea or diaphoresis. It lasted for about 5-10 minutes and was relieved by taking nitroglycerin. His pain then came back and so he went to our emergency room. He says that his chest pain have been going on, on and off for the last month. His EKG in the emergency room showed normal sinus rate and, wi th moderate voltage criteria for LVH, possible anterior myocardial infarction of indeterminate age. His troponin was less than 0.017. He was then admitted under our chest pain protocol. Medical History (Last Reviewed 01/19/18 @ 14:15 by Anabella Olmstead RN) Arthritis CAD (coronary artery disease) GERD (gastroesophageal reflux disease) Hypertension TIA (transient ischemic attack) Trigger finger Surgical History: Surgical History (Last Reviewed 01/19/18 @ 14:16 by Anabella Olmstead RN) H/O carpal tunnel repair bilateral H/O heart artery stent H/O left inguinal hernia repair H/O right inguinal hernia repair Family History: Family History (Last Updated 01/19/18 @ 14:17 by Anabella Olmstead RN) Father Myocardial infarction Mother Lung cancer Brother Myocardial infarction Sister Diabetes Social History: Patient Lives/Resources Home Utilized Preferred Language Moroccan Do you have any christian or No cultural preference? Smoking Status Former smoker Have you smoked in the past 12 No months Do you dip or chew tobacco No Abuse History No History of abuse Psych History No pertinent hx Alcohol Use none Drug Use none No Social History Section defined Review Of Systems (GEN) - Review of Systems Generalized/Overall Review: Absent: Weakness, Chills, Fever EENTM: Absent: Blurred Vision Respiratory: Absent: Cough, Shortness of Breath, Orthopnea Cardiac: Present: Chest Pain. Absent: Edema, Palpitations Abdominal: Absent: Nausea, Vomiting Genitourinary: Absent: Urgency, Frequency Musculoskeletal: Present: Joint Pain Immunizations: IMMUNIZATION HX Immunizations Up to Date Yes History of Influenza Vaccine Yes Hx Pneumococcal Vaccination Yes Allergies/Adverse Reactions: Allergies Allergy/AdvReac Type Severity Reaction Status Date / Time No Known Allergies Allergy Verified 01/19/18 14:17 Home Medications: HOME MEDICATIONS Aspirin [Aspirin Chewable] 81 mg PO DAILY 01/27/14 [Last Taken 01/18/18] Clopidogrel Bisulfate [Plavix] 75 mg PO DAILY 01/27/14 [Last Taken 07/26/16] Gabapentin [Neurontin] 300 mg PO BID 01/27/14 [Last Taken 05/04/16] Pantoprazole Sodium [Protonix] 40 mg PO DAILY 01/27/14 [Last Taken 05/04/16] Simvastatin [Zocor] 20 mg PO HS 01/27/14 [Last Taken 05/03/16] Tamsulosin HCl [Flomax] 0.4 mg PO HS 05/04/16 [Last Taken 05/03/16] Baclofen 10 mg PO BID 07/27/16 [Last Taken 08/03/16 07:00] Benazepril HCl 5 mg PO DAILY 07/27/16 [Last Taken 08/03/16 07:00] Nitroglycerin [Nitrostat] 0.4 mg SL [id number] PRN 07/27/16 [Last Taken 01/19/18] Finasteride [Proscar] 5 mg PO DAILY 01/19/18 [Last Taken Unknown] Stool Softener DAILY 01/19/18 [Last Taken Unknown] Exam - Exam Vital Signs: Vital Signs - Last Taken Temp 36.6 C 01/19/18 15:29 Pulse 63 01/19/18 15:29 Resp 14 01/19/18 15:29 BP 159/61 H 01/19/18 15:29 Pulse Ox 98 01/19/18 15:29 Constitutional: Present: Alert, Oriented x3, Cooperative, Elderly ENT Exam: Present: hearing grossly normal Eye Exam: bilateral eye: normal inspection, PERRL, EOMI Neck: Present: supple Respiratory: Present: normal breath sounds, No rales, No wheezing Cardiovascular/Chest: Present: regular rate, rhythm, no JVD, no murmur Abdomen: Present: Normal bowel sounds, soft, nontender, distended Extremity: Present: no pedal edema, no calf tenderness Diagnostic Studies: Abnormal Lab Results 01/19/18 01/19/18 01/19/18 Range/Units 10:33 10:33 10:33 RBC 4.14 L (4.7-6.0) M/mm3 Hgb 13.3 L (13.5-18.0) gm/dL Hct 39.8 L (42.0-52.0) % MCH 32.1 H (27-31) pg Eosinophils % 8.9 H (0.0-3.0) % Basophils % 1.1 H (0.0-1.0) % PTT ([place]) 23.8 L (24-32) Seconds Random Glucose 138 H (70-110) mg/dL Albumin 3.3 L (3.4-5.0) gm/dl Laboratory Results WBC 5.4 K/mm3 (4.0-10.5) 01/19/18 10:33 RBC 4.14 M/mm3 (4.7-6.0) L 01/19/18 10:33 Hgb 13.3 gm/dL (13.5-18.0) L 01/19/18 10:33 Hct 39.8 % (42.0-52.0) L 01/19/18 10:33 MCV 96.1 fl (78-100) 01/19/18 10:33 MCH 32.1 pg (27-31) H 01/19/18 10:33 MCHC 33.4 g/dl (32-36) 01/19/18 10:33 RDW 13.3 % (11.5-14.0) 01/19/18 10:33 Plt Count 219 K/mm3 (150-450) 01/19/18 10:33 MPV 10.3 fl (8-11.3) 01/19/18 10:33 Immature Gran % (Auto) 0.20 % (0.001-0.429) 01/19/18 10:33 Immature Gran # (Auto) 0.01 K/mm3 (0.000-0.0310) 01/19/18 10:33 Neutrophils % 47.6 % (42-75.0) 01/19/18 10:33 Lymphocytes % 33.7 % (20-51) 01/19/18 10:33 Monocytes % 8.5 % (0.0-9) 01/19/18 10:33 Eosinophils % 8.9 % (0.0-3.0) H 01/19/18 10:33 Basophils % 1.1 % (0.0-1.0) H 01/19/18 10:33 Nucleated RBC % 0.0 k/mm3 (0-1) 01/19/18 10:33 Neutrophils # 2.6 K/mm3 (1.3-6.0) 01/19/18 10:33 Lymphocytes # 1.82 k/mm3 (1.5-3.5) 01/19/18 10:33 Monocytes # 0.5 k/mm3 (0.0-1.0) 01/19/18 10:33 Eosinophils # 0.5 k/mm3 (0.0-0.7) 01/19/18 10:33 Absolute Basophils 0.1 k/mm3 (0.0-0.1) 01/19/18 10:33 PT 10.3 Seconds (9.0-11.0) 01/19/18 10:33 INR (Anticoag Therapy) 1.03 INR (0.90-1.10) 01/19/18 10:33 PTT ([place]) 23.8 Seconds (24-32) L 01/19/18 10:33 Sodium 136 mmol/L (132-142) 01/19/18 10:33 Plasma Sodium 137 mmol/L (130-142) 01/19/18 10:33 Potassium 4.1 mmol/L (3.4-4.6) 01/19/18 10:33 Chloride 104 mmol/L (97-106) 01/19/18 10:33 Carbon Dioxide 25.2 mmol/L (24-32.6) 01/19/18 10:33 Anion Gap 10.9 mmol/L (6.8-13.8) 01/19/18 10:33 BUN 16 mg/dL (6-23) 01/19/18 10:33 Creatinine 1.13 mg/dL (0.4-1.4) 01/19/18 10:33 Est GFR (Non-Af Amer) 66 mL/min (60-130) 01/19/18 10:33 BUN/Creatinine Ratio 14.2 (9.0-21.6) 01/19/18 10:33 Random Glucose 138 mg/dL (70-110) H 01/19/18 10:33 Calcium 8.6 mg/dL (7.9-10.9) 01/19/18 10:33 Calcium Adj for Albumin 8.8 mg/dL (8.4-10.2) 01/19/18 10:33 Total Bilirubin 0.4 mg/dL (0.0-1.1) 01/19/18 10:33 AST 22 U/L (0-48) 01/19/18 10:33 ALT 25 U/L (19-67) 01/19/18 10:33 Alkaline Phosphatase 60 U/L (50-170) 01/19/18 10:33 Troponin I Less than 0.017 ng/mL (0.00-0.10) 01/19/18 10:33 Total Protein 6.5 gm/dL (6.2-8.2) 01/19/18 10:33 Albumin 3.3 gm/dl (3.4-5.0) L 01/19/18 10:33 Assessment/Plan - Assessment/Plan (1) Chest pain Assessment: the ED spoke with his chiropractor sole practitioner, Dr. Calles, and he recommended to do a stress test. will do serial EKG and troponin. Will schedule him a nuclear pharmacologic stress test in the morning. Problem: Resolved Qualifiers: Chest pain type: unspecified Qualified Code(s): R07.9 - Chest pain, unspecified (2) Coronary artery disease Problem: Chronic Qualifiers: Coronary Disease-Associated Artery/Lesion type: unspecified vessel or lesion type [place] vs. transplanted heart: [place] heart Associated angina: with unspecified angina Qualified Code(s): I25.119 - Atherosclerotic heart disease of [place] coronary artery with unspecified angina pectoris (3) Hypertension Problem: Chronic Qualifiers: Hypertension type: essential hypertension Qualified Code(s): I10 - Essential (primary) hypertension (4) Hyperlipidemia Problem: Chronic Qualifiers: Hyperlipidemia type: pure hypercholesterolemia Qualified Code(s): E78.00 - Pure hypercholesterolemia, unspecified; E78.0 - Pure hypercholesterolemia
[2018-01-19] MEDS ORDERED: NITROGLYCERIN 0.4 MG/TAB BTL SL PRN (15:49)
[2018-01-19] MEDS ORDERED: TAMSULOSIN HCL 0.4 MG CAP.SR.24H PO SCH (19:00)
[2018-01-19] MEDS: GABAPENTIN 300 MG CAPSULE PO SCH (20:10)
[2018-01-19] MEDS: BACLOFEN 10 MG TABLET PO SCH (20:10)
[2018-01-19] MEDS ORDERED: SIMVASTATIN 20 MG TABLET PO SCH (21:00)
[2018-01-20] MEDS ORDERED: FINASTERIDE 5 MG TABLET PO SCH (09:00)
[2018-01-20] MEDS ORDERED: ENALAPRIL MALEATE 5 MG TABLET PO SCH (09:00)
[2018-01-20] MEDS ORDERED: CLOPIDOGREL BISULFATE 75 MG TABLET PO SCH (09:00)
[2018-01-20] MEDS ORDERED: ASPIRIN 81 MG TAB.CHEW PO SCH (09:00)
[2018-01-20] MEDS ORDERED: Regadenoson 0.08 MG/ML SYRG IV ONE (09:30)
[2018-01-20] MEDS ORDERED: Regadenoson 0.1 MG UNIT IV ONE (09:30)
[2018-01-20] MEDS: BACLOFEN 10 MG TABLET PO SCH (10:45)
[2018-01-20] MEDS: GABAPENTIN 300 MG CAPSULE PO SCH (10:45)
[2018-01-20] MEDS ORDERED: ISOSORBIDE MONONITRATE 30 MG TAB.SR.24H PO SCH (13:15)
--- NOTE | 2018-01-20 13:21 | DS ---
(1) Chest pain Diagnosis(s): AMI ruled out Problem: Resolved Qualifiers: Ischemic chest pain type: stable angina pectoris Qualified Code(s): R07.9 - Chest pain, unspecified (2) Coronary artery disease Problem: Chronic Qualifiers: Coronary Disease-Associated Artery/Lesion type: unspecified vessel or lesion type [place] vs. transplanted heart: [place] heart Associated angina: with unspecified angina Qualified Code(s): I25.119 - Atherosclerotic heart disease of [place] coronary artery with unspecified angina pectoris (3) Hypertension Problem: Chronic Qualifiers: Hypertension type: essential hypertension Qualified Code(s): I10 - Essential (primary) hypertension (4) Hyperlipidemia Problem: Chronic Qualifiers: Hyperlipidemia type: pure hypercholesterolemia Qualified Code(s): E78.00 - Pure hypercholesterolemia, unspecified; E78.0 - Pure hypercholesterolemia Description of Stay: Jovanny Bradshaw, is an 82-year-old white male, patient of Dr. Vasquez, with past medical history of coronary artery disease, status post stenting, hypertension, GERD, osteoarthritis, who was admitted on 01/19/2018 because of chest pain. Early on the morning admission while the patient was sitting down she experienced sharp chest pain 4-5/10, left parasternal, nonradiating, not associated with nausea or diaphoresis. It lasted for about 5-10 minutes and was relieved by taking nitroglycerin. His pain then came back and so he went to our emergency room. His chest pain have been going on, on and off for the last month. His EKG in the emergency room showed normal sinus rate and, with moderate voltage criteria for LVH, possible anterior myocardial infarction of indeterminate age. His troponin was less than 0.017. He was then admitted under our chest pain protocol. His plush weaver was contacted by ED and he recommended dong a stress test. His repeat EKG and troponion were negative. He underwent a nuclear pharmacologic stress test using Lexiscan and it did not shpw any evidence of reversible myocardial ischemia or infarct. he is stabl;e to be discharge and will put him on Isosorbide mononitrate. Procedures Performed: none Results and Findings: Lab Pending Results 01/19/18 10:33: WBC 5.4, RBC 4.14 L, Hgb 13.3 L, Hct 39.8 L, MCV 96.1, MCH 32.1 H, MCHC 33.4, RDW 13.3, Plt Count 219, MPV 10.3, Immature Gran % (Auto) 0.20, Immature Gran # (Auto) 0.01, Neutrophils % 47.6, Lymphocytes % 33.7, Monocytes % 8.5, Eosinophils % 8.9 H, Basophils % 1.1 H, Nucleated RBC % 0.0, Neutrophils # 2.6, Lymphocytes # 1.82, Monocytes # 0.5, Eosinophils # 0.5, Absolute Basophils 0.1 01/19/18 10:33: PT 10.3, INR (Anticoag Therapy) 1.03, PTT ([place]) 23.8 L 01/19/18 10:33: Sodium 136, Plasma Sodium 137, Potassium 4.1, Chloride 104, Carbon Dioxide 25.2, Anion Gap 10.9, BUN 16, Creatinine 1.13, Est GFR (Non-Af Amer) 66, BUN/Creatinine Ratio 14.2, Random Glucose 138 H, Calcium 8.6, Calcium Adj for Albumin 8.8, Total Bilirubin 0.4, AST 22, ALT 25, Alkaline Phosphatase 60, Troponin I Less than 0.017, Total Protein 6.5, Albumin 3.3 L 01/19/18 18:30: Troponin I Less than 0.017 01/20/18 05:23: Troponin I Less than 0.017 Discharge Location: Home Disposition: Home self-care Condition: Good Discharge Activity: Activity as tolerated Discharge Diet: Low salt, Low fat/chol Referrals: Kevin Vasquez MD [Primary Care Provider] - Additional Patient Instructions (free text): Follow up with his PCP in 2 weeks. Prescriptions (Any new or edited meds): Isosorbide Mononitrate [Imdur] 30 mg PO DAILY #30 tab.sr.24h Complete Home Medications List: Complete Home Medication List: Aspirin [Aspirin Chewable] 81 mg PO DAILY 01/27/14 Clopidogrel Bisulfate [Plavix] 75 mg PO DAILY 01/27/14 Gabapentin [Neurontin] 300 mg PO BID 01/27/14 Pantoprazole Sodium [Protonix] 40 mg PO DAILY 01/27/14 Simvastatin [Zocor] 20 mg PO HS 01/27/14 Tamsulosin HCl [Flomax] 0.4 mg PO HS 05/04/16 Baclofen 10 mg PO BID 06/12/17 Benazepril HCl 5 mg PO DAILY 07/27/16 Nitroglycerin [Nitrostat] 0.4 mg SL [id number] PRN 07/27/16 Finasteride [Proscar] 5 mg PO DAILY 01/19/18 Stool Softener DAILY 01/19/18 Isosorbide Mononitrate [Imdur] 30 mg PO DAILY #30 tab.sr.24h 01/20/18
[2018-01-20 14:13] VITALS: BP 138/71
== END 2018-01-20 15:07 | disposition home or self-care (01) ==
LOC: ER 10:00 → MS 10:00
PROVIDERS: ADMIT Internal Medicine; ATTEND Internal Medicine
DX: R07.89 Other chest pain
CPT/HCPCS: 36415; 71020; 71046; 78452; 80053; 84484; 85025; 85610; 85730; 93005; 93017; 99284; A9502; G0378; J2785